=== PATIENT | female | born 1970 | race Hispanic/Latino ===

== ENCOUNTER 2017-11-04 13:52 | Outpatient (CLI) | payer OTHER ==
--- NOTE | 2017-11-04 15:43 | MMO ---
BILATERAL SCREENING MAMMOGRAM: Date: 11/04/17 COMPARISON: 08/15/16 and 04/07/15. HISTORY: Screening mammography. FINDINGS: This patient's mammogram was interpreted with the assistance of computer-aided detection. There are scattered fibroglandular densities noted bilaterally. No dominant mass or architectural dis tortion. No concerning calcifications are seen. Benign calcification is present on the right. IMPRESSION: BIRADS 2: Benign Finding(s) Annual screening mammography recommended. POS: [facility]
== END 2017-11-04 13:53 | disposition home or self-care (01) ==
LOC: SCSRAD 13:52 → SCSMAMMO 13:53
PROVIDERS: ATTEND Family Medicine
DX: Z12.31 Encounter for screening mammogram for malignant neoplasm of breast (principal)
CPT/HCPCS: 77067

== ENCOUNTER 2018-11-06 05:54 | Outpatient (CLI) | payer OTHER ==
[2018-11-06 06:52] LABS: ALT (SGPT) 28 U/L (8-55); AST (SGOT) 21 U/L (5-34); Albumin 4.2 g/dL (3.5-5.0); Alkaline Phosphatase 56 U/L (40-150); Anion Gap 10 mmol/L (10-20); BUN (Urea Nitrogen) 9 mg/dL (7.0-18.7); Bilirubin, Total 0.4 mg/dL (0.2-1.2); Calc. Creatinine Clearance 0 mL/min (70-130); Calcium 9.5 mg/dL (7.8-10.44); Carbon Dioxide 25 mmol/L (22-29); Cardiac Risk 3.4 (Less than 4.5); Chloride 109 mmol/L (98-107); Cholesterol 202 mg/dl (< 200 Desired); Estimated GFR-MDRD 89; Globulin 2.7 g/dL (2.4-3.5); Glucose 94 mg/dL (70-105); HDL Cholesterol 59 mg/dL (>60 Neg Risk); LDL Cholesterol, Calculated 125 mg/dL; Protein, Total 6.9 g/dL (6.0-8.3); Sodium 140 mmol/L (136-145); Triglycerides 88 mg/dL (Less than 150); Uric Acid 5.1 mg/dL (2.6-6.0)
[2018-11-06 06:57] LABS: #Basophils 0.1 thou/uL (0.0-0.2); #Eosinphils 0.1 thou/uL (0.0-0.7); #Lymphocytes 2.1 thou/uL (1.20-3.40); #Monocytes 0.5 thou/uL (0.11-0.59); #Neutrophils 3.1 thou/uL (1.40-6.50); %Eosinophils 2.1 % (0.0-10.0); %Lymphocytes 35.5 % (21.0-51.0); %Monocytes 7.9 % (0.0-10.0); %Neutrophils 53.5 % (42.0-75.0); Hemoglobin 13.7 g/dL (12.0-16.0); Mean Corpuscular HGB CONC 33.9 g/dL (32.0-36.0); Mean Corpuscular Hemoglobin 31.7 pg (27.0-31.0); Mean Corpuscular Volume 93.5 fL (78.0-98.0); Mean Platelet Volume 7.9 fL (7.4-10.4); Platelet Count 285 thou/uL (130-400); RBC Distribution Width 11.8 % (11.5-14.5); Red Blood Cell (RBC) Count 4.32 mill/uL (4.20-5.40); White Blood Cell (WBC) Count 5.9 thou/uL (4.8-10.8)
[2018-11-06 07:16] LABS: Free T4 (Free Thyroxine) 1.03 ng/dL (0.70-1.48); Thyroid Stimulating Hormone 1.9196 uIU/mL (0.35-4.94)
[2018-11-06 10:26] LABS: Albumin (w/Testosterone Panel) 4.2 g/dL
[2018-11-06 10:49] LABS: Follicle Stimulating Hormone 13.87 mIU/mL (See Ranges); Luteinizing Hormone 13.42 mIU/mL (See Ranges)
[2018-11-06 10:52] LABS: Sex Hormone Binding Globulin 89.5 nmol/L (26-188); Testosterone, Free 2.9 pg/mL (50-110); Testosterone, Total 32.9 ng/dL (12-36)
[2018-11-06 10:53] LABS: Progesterone 7.5 ng/mL
== END 2018-11-06 05:55 | disposition home or self-care (01) ==
LOC: SCSLAB 05:54
PROVIDERS: ATTEND Family Medicine
DX: Z00.00 Encounter for general adult medical examination without abnormal findings (principal); M25.572 Pain in left ankle and joints of left foot; N95.9 Unspecified menopausal and perimenopausal disorder
CPT/HCPCS: 36415; 80053; 80061; 82306; 82670; 83001; 83002; 84144; 84270; 84403; 84439; 84443; 84550; 85025

== ENCOUNTER 2019-03-03 07:58 | Outpatient (CLI) | payer OTHER ==
--- NOTE | 2019-03-03 08:24 | BD ---
DEXA BONE DENSITY STUDY: Date: 03/03/19 HISTORY: Postmenopausal. FINDINGS: Lumbar Spine: BMD (g/cm2) L1 0.962 T-Score: -0.3 L2 0.988 T-Score: -0.4 L3 0.967 T-Score: -1.1 L4 0.993 T-Score: -0.6 Total 0.978 T-Score: -0.6 Left Femoral Neck: 0.822 T-Score: -0.2 Total Femur: 0.946 T-Score: +0.0 IMPRESSION: Normal bone mineral density of the lumbar spine and left femoral neck. POS: [facility]
--- NOTE | 2019-03-03 08:46 | MMO ---
Bilateral MAMMO Bilat Screen [facility]. CLINICAL HISTORY: Patient is 48 years old and is seen for screening. The patient has no family history of breast cancer. The patient has no personal history of cancer. VIEWS: The views performed were: bilateral craniocaudal with tomosynthesis; bilateral mediolateral oblique with tomosynthesis; and bilateral exaggerated craniocaudal. FILMS COMPARED: The present examination has been compared to prior imaging studies performed at [facility] on 05/12/2013, 04/07/2015, 08/15/2016 and 11/04/2017. MAMMOGRAM FINDINGS: There are scattered fibroglandular densities. There are no suspicious masses, suspicious calcifications, or new areas of architectural distortion. IMPRESSION: THERE IS NO MAMMOGRAPHIC EVIDENCE OF MALIGNANCY. A ROUTINE FOLLOW-UP MAMMOGRAM IN 1 YEAR IS RECOMMENDED. THE RESULTS OF THIS EXAM WERE SENT TO THE PATIENT. ACR BI-RADS Category 1 - Negative MAMMOGRAPHY NOTE: 1. A negative mammogram report should not delay a biopsy if a dominant of clinically suspicious mass is present. 2. Approximately 10% to 15% of breast cancers are not detected by mammography. 3. Adenosis and dense breasts may obscure an underlying neoplasm. Reported by: TONY MÁRQUEZ MD Electonically Signed: [id number]
== END 2019-03-03 07:59 | disposition home or self-care (01) ==
LOC: BICMAMMO 07:58
PROVIDERS: ATTEND Family Medicine
DX: Z12.31 Encounter for screening mammogram for malignant neoplasm of breast (principal); Z13.820 Encounter for screening for osteoporosis; M85.88 Other specified disorders of bone density and structure, other site
CPT/HCPCS: 77063; 77067; 77080

== ENCOUNTER 2019-06-04 08:11 | Outpatient (CLI) | payer OTHER ==
[2019-06-04] MEDS ORDERED: Gadobenate Dimeglumine 529 MG/1 ML (20ML VIAL) ONE (09:00)
--- NOTE | 2019-06-04 10:30 | MRI ---
MR angiogram of the head: 06/04/2019 COMPARISON: None HISTORY: Headache with activity/exercise for 2-3 weeks TECHNIQUE: Routine [id number] MR angiography of the brain obtained. FINDINGS: Antegrade blood flow noted within distal vertebral arteries and distal extracranial interna l carotid arteries. The basilar artery and its branches are patent. No saccular aneurysm, high-grade stenosis, or vascula r occlusion is seen involving the posterior circulation. The A1 segment, M1 segment, MCA bifurcation, distal MCA branches, and distal ADRI branches appear rain sly unremarkable bilaterally. No saccular aneurysm, high-grade stenosis, or vascular occlusion is seen involving the anterior circulation. IMPRESSION: Grossly unremarkable MR angiogram of the head.
--- NOTE | 2019-06-04 11:08 | ULT ---
BILATERAL RENAL ULTRASOUND COMPLETE: HISTORY: Labile hypertension. FINDINGS: Right kidney measures 10.5 x 4.9 x 4.7 cm. The left kidney measures 10.1 x 5 x 5.9 cm. No renal hyd ronephrosis. No perinephric process. Urinary bladder is unremarkable. IMPRESSION: Unremarkable bilateral renal ultrasound. POS: [facility]
--- NOTE | 2019-06-04 11:53 | MRI ---
MRI BRAIN WITH AND WITHOUT IV CONTRAST: Date: 06/04/19 HISTORY: Headache. FINDINGS: No evidence of infarct, hemorrhage, midline shift, or abnormal extra-axial fluid collections seen. Ve ntricular size is normal and basilar cisterns are patent. No abnormal postcontrast enhancement is see n. No restricted diffusion is noted. No signal abnormalities are seen on the highly sensitive FLAIR i mages. No blood products are noted on the gradient echo sequences. No tonsillar herniation is seen. T he visualized paranasal sinuses and mastoid air cells are well aerated. IMPRESSION: Normal exam. POS: [facility]
== END 2019-06-04 08:12 | disposition home or self-care (01) ==
LOC: SCSULT 08:11
PROVIDERS: ATTEND Family Medicine
DX: G44.89 Other headache syndrome (principal); R09.89 Other specified symptoms and signs involving the circulatory and respiratory systems
CPT/HCPCS: 70544; 70553; 76770; A9577

== ENCOUNTER 2020-12-22 06:51 | Outpatient (CLI) | payer OTHER | END 2020-12-22 06:52 | disposition home or self-care (01) | LOC: BICULT 06:51 | PROVIDERS: ATTEND Family Medicine | DX: R10.2 Pelvic and perineal pain (principal); N83.202 Unspecified ovarian cyst, left side | CPT/HCPCS: 76856 ==